=== PATIENT | female | born 1995 | race Caucasian/White ===

== ENCOUNTER 2017-10-14 13:56 | Emergency (ER) | payer BC ==
[~2017-10-14] VITALS: Ht 162.6 cm; Wt 68.7 kg
[2017-10-14 14:00] VITALS: TEMP 36.8; Ht 162.6 cm; Wt 68.7 kg
[2017-10-14] MEDS ORDERED: MoRPHine SULFATE 2 MG/ML CARP IV STA (14:10)
[2017-10-14] MEDS ORDERED: ONDANSETRON INJ 2 MG/ML 2 ML VIAL IV STA (14:11)
[2017-10-14] MEDS ORDERED: SODIUM CHLORIDE 0.9% 1000ML 1,000 ML IV SCH (14:15)
[2017-10-14] MEDS ORDERED: TAMSULOSIN HCL 0.4 MG CAP PO STA (14:21)
--- NOTE | 2017-10-14 14:22 | EMERGENCY ROOM VISIT NOTE ---
History First contact with patient: 14:03 Chief Complaint: FLANK PAIN Stated Complaint: LEFT SIDED PAIN/KIDNEY STONES History of Present Illness The patient is a 22 year old female who presents to the Emergency Room with complaints of left sided flank pain that started this morning. Her pain is currently an 8/10, sharp and stabbing. She reports having taken 4 Advil with minimal relief. She denies urinary symptoms, though she has not been able to urinate since this morning. She has some nausea but denies vomiting, diarrhea. She did see a doctor this morning at the [facility] and she was supposedly going to go home with antibiotics but due to not having urinated, they sent her to the ED for concerns of renal failure. She does have a history of kidney stones, one in 2015 requiring lithotripsy. Has not had stone studies done. All of her records are in [place]. She has a nexplanon. Denies previous . Review of Systems See HPI for pertinent positives & negatives. A total of 10 systems reviewed and were otherwise negative. Social History Smoking Status: Never Smoker Alcohol Use: occasionally Drug Use: none Marital Status: single Housing Status: lives with roommate Occupation Status: student Current/Historical Medications Scheduled Etonogestrel (Nexplanon), 68 MG IM [id number] Tamsulosin Hcl (Flomax), 0.4 MG PO DAILY Scheduled PRN Oxycodone/Acetaminophen 5MG/325MG (Percocet 5MG/325MG), 1-2 TABLETS PO Q4H PRN for Pain Physical Exam Vital Signs Date Time Temp Pulse Resp B/P (MAP) Pulse Ox O2 Delivery O2 Flow Rate FiO2 10/14/17 17:31 111 18 124/74 97 10/14/17 15:48 104 18 122/76 100 Room Air 10/14/17 14:00 36.8 100 17 117/70 99 Room Air Physical Exam GENERAL: Patient is moderate distress, in pain HEENT:normocephalic atraumatic, mucous membranes moist, no nasal congestion, no scleral icterus. NECK: No stridor, no adenopathy, no meningismus, trachea is midline. LUNGS: Clear to auscultation bilaterally, no wheeze, no rhonchi, breath sounds equal. HEART: Without murmurs gallops or rubs, regular rate and rhythm. ABDOMEN: Soft, nontender, bowel sounds positive, no hernias, no peritonitis, left flank pain difficult to appreciate EXTREMITIES: No cyanosis or edema, full range of motion of all the joints without pain or difficulty, no signs for acute trauma. NEUROLOGIC: Oriented x 3, no acute motor or sensory deficits, no focal weakness. SKIN: No rash, no jaundice, no diaphoresis. Medical Decision & Procedures Laboratory Results 10/14/17 14:25 Red Blood Count 5.00, Mean Corpuscular Volume 83.6, Mean Corpuscular Hemoglobin 27.6, Mean Corpuscular Hemoglobin Concent 33.0, Mean Platelet Volume 10.6, Neutrophils (%) (Auto) 87.3, Lymphocytes (%) (Auto) 8.5, Monocytes (%) (Auto) 3.6, Eosinophils (%) (Auto) 0.2, Basophils (%) (Auto) 0.2, Neutrophils # (Auto) 11.15, Lymphocytes # (Auto) 1.08, Monocytes # (Auto) 0.46, Eosinophils # (Auto) 0.02, Basophils # (Auto) 0.02 10/14/17 14:25 Test 10/14/17 14:25 10/14/17 16:36 White Blood Count 12.76 K/uL (4.8-10.8) Red Blood Count 5.00 M/uL (4.2-5.4) Hemoglobin 13.8 g/dL (12.0-16.0) Hematocrit 41.8 % (37-47) Mean Corpuscular Volume 83.6 fL (80-100) Mean Corpuscular Hemoglobin 27.6 pg (25-34) Mean Corpuscular Hemoglobin Concent 33.0 g/dl (32-36) Platelet Count 247 K/uL (130-400) Mean Platelet Volume 10.6 fL (7.4-10.4) Neutrophils (%) (Auto) 87.3 % Lymphocytes (%) (Auto) 8.5 % Monocytes (%) (Auto) 3.6 % Eosinophils (%) (Auto) 0.2 % Basophils (%) (Auto) 0.2 % Neutrophils # (Auto) 11.15 K/uL (1.4-6.5) Lymphocytes # (Auto) 1.08 K/uL (1.2-3.4) Monocytes # (Auto) 0.46 K/uL (0.11-0.59) Eosinophils # (Auto) 0.02 K/uL (0-0.5) Basophils # (Auto) 0.02 K/uL (0-0.2) RDW Standard Deviation 42.1 fL (36.4-46.3) RDW Coefficient of Variation 13.9 % (11.5-14.5) Immature Granulocyte % (Auto) 0.2 % Immature Granulocyte # (Auto) 0.03 K/uL (0.00-0.02) Anion Gap 13.0 mmol/L (3-11) Est Creatinine Clear Calc Drug Dose 70.6 ml/min Estimated GFR () 75.0 Estimated GFR (Non- 64.8 BUN/Creatinine Ratio 13.5 (10-20) Calcium Level 10.1 mg/dl (8.5-10.1) Total Bilirubin 0.5 mg/dl (0.2-1) Direct Bilirubin 0.2 mg/dl (0-0.2) Aspartate Amino Transf (AST/SGOT) 19 U/L (15-37) Alanine Aminotransferase (ALT/SGPT) 26 U/L (12-78) Alkaline Phosphatase 136 U/L (45-117) Total Protein 8.6 gm/dl (6.4-8.2) Albumin 4.8 gm/dl (3.4-5.0) Globulin 3.8 gm/dl (2.5-4.0) Albumin/Globulin Ratio 1.3 (0.9-2) Human Chorionic Gonadotropin, Quant < 1 mIU/mL Urine Color YELLOW Urine Appearance CLEAR (CLEAR) Urine pH 7.0 (4.5-7.5) Urine Specific [place] 1.022 (1.000-1.030) Urine Protein 1+ (NEG) Urine Glucose (UA) NEG (NEG) Urine Ketones 3+ (NEG) Urine Occult Blood 3+ (NEG) Urine Nitrite NEG (NEG) Urine Bilirubin NEG (NEG) Urine Urobilinogen NEG (NEG) Urine Leukocyte Esterase TRACE (NEG) Urine WBC (Auto) 1-5 /hpf (0-5) Urine RBC (Auto) >30 /hpf (0-4) Urine Hyaline Casts (Auto) 1-5 /lpf (0-5) Urine Epithelial Cells (Auto) >30 /lpf (0-5) Urine Bacteria (Auto) NEG (NEG) Medications Administered Medications (Trade) Dose Ordered Sig/Fifi Route Start Time Stop Time Status Last Admin Dose Admin Morphine Sulfate (MoRPHine SULFATE INJ) 2 mg NOW STAT IV 10/14/17 14:10 10/14/17 14:11 DC 10/14/17 14:19 2 MG Ondansetron HCl (Zofran Inj) 4 mg NOW STAT IV 10/14/17 14:11 10/14/17 14:12 DC 10/14/17 14:18 4 MG Sodium Chloride 1,000 ml @ 125 mls/hr Q8H IV 10/14/17 14:15 10/14/17 18:06 DC 10/14/17 14:19 125 MLS/HR Tamsulosin HCl (Flomax Cap) 0.4 mg NOW STAT PO 10/14/17 14:21 10/14/17 14:22 DC 10/14/17 14:35 0.4 MG Miscellaneous Information (Patient'S Allergy Info Needs Entered) 1 ea Q30M N/A 10/14/17 14:30 10/14/17 18:06 DC 10/14/17 14:30 1 EA Ketorolac Tromethamine (Toradol Inj) 30 mg NOW STAT IV 10/14/17 15:00 10/14/17 15:01 DC 10/14/17 15:12 30 MG Morphine Sulfate (MoRPHine SULFATE INJ) 4 mg NOW STAT IV 10/14/17 15:26 10/14/17 15:27 DC 10/14/17 15:47 4 MG ED Course 1400 patient was evaluated in b5 1410 Ordered Morphine 2 mg and Zofran 4 mg + Blood work , u/a 1500 Patient reevaluated and continues to complain of pain. Ordered Toradol 30 mg 1525 patient refusing to go to [facility] due to pain. Morphine 4 mg ordered 1630 Advised patients of findings. Discharge plans discussed. Medical Decision This is a 22 y/o F who presents with Left flank pain. Etiologies considered include UTI, Pyelonephritis, Kidney stone, etc. CBC with mildly elevated WBC count. U/A was positive for blood but no urine bacteria. KUB revealed a questionable 3 mm stone in the left ureter at level of L2-L3, non obstructing without hydronephrosis. Renal USG was unremarkable. Her pain was managed with morphine and Toradol. Her symptoms improved. Her Urine did not show signs of an infection. She was advised of all results. She was advised that her stone will likely pass on its own. She was given IV fluids in the ER and was recommended to stay hydrated. She was given Percocet to use as needed at home. She was advised NOT to drive while on Percocet. If her symptoms worsen or she has fevers, chills, nausea vomiting, she was advised to follow up with her PCP or come back to the ER. Blood Pressure Screening Patient's blood pressure: Normal blood pressure Impression Primary Impression: Left flank pain Additional Impression: Kidney stone Departure Information Dispostion Home / Self-Care Condition FAIR Prescriptions Tamsulosin Hcl (FLOMAX) 0.4 Mg Cap 0.4 MG PO DAILY, #10 CAP Prov: Joaquina Trivedi MD 10/14/17 Oxycodone/Acetaminophen 5MG/325MG (PERCOCET 5MG/325MG) Tab 1-2 TABLETS PO Q4H Y for Pain, #10 TAB PAIN Prov: Joaquina Trivedi MD 10/14/17 Referrals No Doctor, Assigned (PCP) Patient Instructions [facility] Problem Qualifiers
[2017-10-14] MEDS: PATIENT'S ALLERGY INFO NEEDS ENTERED SCH ×2 (14:30→15:00)
[2017-10-14 14:36] LABS: BASO % 0.2 %; BASO ABS # 0.02 K/uL (0-0.2); COMPLETE YES; EOS % 0.2 %; HEMATOCRIT 41.8 % (37-47); IG% 0.2 %; LYMPH % 8.5 %; LYMPH ABS # 1.08 K/uL (1.2-3.4); MEAN CELL VOLUME 83.6 fL (80-100); MEAN CORPUSCULAR HEMOGLOBIN 27.6 pg (25-34); MEAN PLATELET VOLUME 10.6 fL (7.4-10.4); MONO % 3.6 %; NEUT % 87.3 %; PLATELET COUNT 247 K/uL (130-400); WHITE BLOOD COUNT 12.76 K/uL (4.8-10.8)
[2017-10-14 14:55] LABS: BUN/CREATININE RATIO 13.5 (10-20); CALCIUM 10.1 mg/dl (8.5-10.1); CREATININE 1.19 mg/dl (0.60-1.20); POTASSIUM 3.5 mmol/L (3.5-5.1)
[2017-10-14] MEDS ORDERED: ETON1IMP2 IM (14:55)
[2017-10-14 14:58] LABS: ALB/GLOB RATIO 1.3 (0.9-2)
[2017-10-14] MEDS ORDERED: KETOROLAC TROMETHAMINE 30 MG/ML VIAL IV STA (15:00)
--- NOTE | 2017-10-14 15:01 | DIAGNOSTIC IMAGING REPORT ---
KUB CLINICAL HISTORY: Nephrolithiasis COMPARISON STUDY: No previous studies for comparison. FINDINGS: There is no pathologic bowel dilatation. There is a 3 mm calcification at the L2-3 level to the left of midline. This could represent a proximal left ureteral calculus. Please correlate with symptoms of left ureteral colic.. IMPRESSION: 1. No evidence of pathologic bowel dilatation 2. 3 mm calcification at the L2-3 level of the left. This could represent a proximal left ureteral calculus. Clinical correlation in this regard is advocated Electronically signed by: Randall Moore M.D. 10/14/2017 3:00 PM Dictated Date/Time: 10/14/2017 2:58 PM
[2017-10-14] MEDS ORDERED: MoRPHine SULFATE 4 MG/ML 1 ML CARP\\VIAL IV STA (15:26)
--- NOTE | 2017-10-14 15:38 | EMERGENCY ROOM VISIT NOTE ---
ED Visit Note First contact with patient: 14:03 Resident Physician Supervision Note: I was present with Dr. Trivedi during the history and exam. I discussed the case with the resident and agree with the findings and plan as documented in the note. Documented By: Loy Douglass
--- NOTE | 2017-10-14 16:23 | DIAGNOSTIC IMAGING REPORT ---
RENAL ULTRASOUND HISTORY: kidney stone? COMPARISON: KUB 10/14/2017. FINDINGS: Right kidney: 10.5 cm. No hydronephrosis. Normal corticomedullary differentiation and cortical thickness. Left kidney: 11.5 cm. Mild dilatation involving the left renal lower pole collecting system. Normal corticomedullary differentiation and cortical thickness. Bladder: The bilateral ureteral jets are identified. IMPRESSION: 1. Normal right kidney. 2. Mild dilatation involving the lower pole of the left renal lower pole collecting system. Electronically signed by: Eduar Cohn M.D. 10/14/2017 4:21 PM Dictated Date/Time: 10/14/2017 4:19 PM
[2017-10-14] MEDS ORDERED: OXYC-57 PO ×2 (17:05→17:07)
[2017-10-14] MEDS ORDERED: TAMS0.4C38 PO (17:07)
[2017-10-14 17:12] LABS: URINE APPEARANCE CLEAR (CLEAR); URINE BILIRUBIN NEG (NEG); URINE COLOR YELLOW; URINE EPITHELIAL CELL AUTO >30 /lpf (0-5); URINE NITRITE NEG (NEG); URINE SPECIFIC GRAVITY 1.022 (1.000-1.030); UROBILINOGEN NEG (NEG); ZZUR CULT IF INDIC CLEAN CATCH NO
[2017-10-14 17:13] LABS: MANUAL MICROSCOPIC REQUIRED? NO; REVIEW REQ? NO
[2017-10-14 17:31] VITALS: BP 124/74; PULSE 111; O2SAT 97
== END 2017-10-14 17:33 | disposition home or self-care (01) ==
LOC: C.EDB 13:58
DX: R10.9 Unspecified abdominal pain (principal); N20.0 Calculus of kidney; Z87.442 Personal history of urinary calculi; Z98.890 Other specified postprocedural states